=== PATIENT | male | born 1970 | race Caucasian/White ===

== ENCOUNTER 2020-01-08 11:00 | Emergency (ER) | payer SELFPAY ==
[2020-01-08] MEDS ORDERED: ASPIRIN 325 MG TAB PO ONE (11:43)
--- NOTE | 2020-01-08 12:15 | XRay Report ---
CHEST 2 VIEWS INDICATION / CLINICAL INFORMATION: CP. COMPARISON: None available. FINDINGS: SUPPORT DEVICES: None. HEART / MEDIASTINUM: No significant abnormality. LUNGS / PLEURA: No significant pulmonary or pleural abnormality. No pneumothorax. ADDITIONAL FINDINGS: No significant additional findings. IMPRESSION: No acute cardiopulmonary abnormality. Signer Name: Bruno Cowan MD Signed: 01/08/2020 12:11 PM Workstation Name: [id number]
[2020-01-08 13:18] LABS: Albumin 4.5 g/dL (3.9-5); Calcium 9.5 mg/dL (8.4-10.2)
--- NOTE | 2020-01-08 13:24 | Emergency Department Report ---
ED General Adult HPI - General Chief complaint: Chest Pain Stated complaint: CP/PALPATATIONS Time Seen by Provider: 01/08/20 11:52 Source: patient Mode of arrival: Ambulatory Limitations: No Limitations - History of Present Illness Initial comments: Patient is a 49-year-old male who presents emergency room complaints of palpitations that began a couple weeks ago. He states that he intermittently feels left-sided chest pain which he describes as a mild pressure. He states that he feels like his heart is beating fast. He denies any radiation of the pain, nausea, vomiting, diarrhea, fever, leg swelling, shortness of breath. He denies any past medical history. He states he has an allergy to penicillin. He states he is a nondrinker, denies drug use, denies tobacco use, denies taking supplements. He states that he does drink sweet tea daily. He states that he does not drink water often. He denies any family cardiac history. - Related Data Allergies Allergy/AdvReac Type Severity Reaction Status Date / Time No Known Allergies Allergy Unverified 01/08/20 11:37 ED Review of Systems ROS: Stated complaint: CP/PALPATATIONS Other details as noted in HPI Comment: All other systems reviewed and negative ED Past Medical Hx - Past Medical History Previous Medical History?: No - Surgical History Past Surgical History?: Yes Additional Surgical History: TONSILLECTOMY - Social History Smoking Status: Never Smoker Substance Use Type: None ED Physical Exam - General Limitations: No Limitations General appearance: alert, in no apparent distress - Head Head exam: Present: atraumatic, normocephalic - Eye Eye exam: Present: normal appearance - ENT ENT exam: Present: mucous membranes moist - Respiratory Respiratory exam: Present: normal lung sounds bilaterally. Absent: respiratory distress, wheezes, rales, rhonchi, stridor, chest wall tenderness, accessory muscle use, decreased breath sounds, prolonged expiratory - Cardiovascular Cardiovascular Exam: Present: regular rate, normal rhythm, normal heart sounds. Absent: systolic murmur, diastolic murmur, rubs, gallop - Extremities Exam Extremities exam: Absent: pedal edema - Neurological Exam Neurological exam: Present: alert, oriented X3 - Psychiatric Psychiatric exam: Present: normal affect, normal mood - Skin Skin exam: Present: warm, dry, intact ED Course Vital Signs 09/06/20 09/06/20 11:31 14:27 Temperature 97.8 F Pulse Rate 80 78 Respiratory 18 16 Rate Blood Pressure 163/97 Blood Pressure 156/91 [Left] O2 Sat by Pulse 97 98 Oximetry ED Medical Decision Making - Lab Data Result diagrams: 01/08/20 12:17 01/08/20 12:22 Lab Results 01/08/20 01/08/20 01/08/20 Range/Units 12:17 12:22 12:22 WBC 6.7 (4.5-11.0) K/mm3 RBC 5.45 H (3.65-5.03) M/mm3 Hgb 16.3 H (11.8-15.2) gm/dl Hct 49.0 H (35.5-45.6) % MCV 90 (84-94) fl MCH 30 (28-32) pg MCHC 33 (32-34) % RDW 13.6 (13.2-15.2) % Plt Count 166 (140-440) K/mm3 Lymph % (Auto) 33.2 (13.4-35.0) % Bremer % (Auto) 6.9 (0.0-7.3) % Eos % (Auto) 1.0 (0.0-4.3) % Baso % (Auto) 0.8 (0.0-1.8) % Lymph # 2.2 (1.2-5.4) K/mm3 Bremer # 0.5 (0.0-0.8) K/mm3 Eos # 0.1 (0.0-0.4) K/mm3 Baso # 0.1 (0.0-0.1) K/mm3 Seg Neutrophils % 58.1 (40.0-70.0) % Seg Neutrophils # 3.9 (1.8-7.7) K/mm3 Sodium 141 (137-145) mmol/L Potassium 4.5 (3.6-5.0) mmol/L Chloride 102.5 (98-107) mmol/L Carbon Dioxide 26 (22-30) mmol/L Anion Gap 17 mmol/L BUN 12 (9-20) mg/dL Creatinine 1.3 (0.8-1.3) mg/dL Estimated GFR 59 ml/min BUN/Creatinine Ratio 9 % Glucose 98 (75-100) mg/dL Calcium 9.5 (8.4-10.2) mg/dL Magnesium 2.10 (1.7-2.3) mg/dL Total Bilirubin 0.40 (0.1-1.2) mg/dL AST 19 (5-40) units/L ALT 18 (7-56) units/L Alkaline Phosphatase 66 (35-129) units/L Total Creatine Kinase 225 H (55-170) units/L Troponin T < 0.010 (0.00-0.029) ng/mL Total Protein 8.1 (6.3-8.2) g/dL Albumin 4.5 (3.9-5) g/dL Albumin/Globulin Ratio 1.3 % TSH (0.270-4.200) mlU/mL 01/08/20 01/08/20 Range/Units 12:22 14:47 WBC (4.5-11.0) K/mm3 RBC (3.65-5.03) M/mm3 Hgb (11.8-15.2) gm/dl Hct (35.5-45.6) % MCV (84-94) fl MCH (28-32) pg MCHC (32-34) % RDW (13.2-15.2) % Plt Count (140-440) K/mm3 Lymph % (Auto) (13.4-35.0) % Bremer % (Auto) (0.0-7.3) % Eos % (Auto) (0.0-4.3) % Baso % (Auto) (0.0-1.8) % Lymph # (1.2-5.4) K/mm3 Bremer # (0.0-0.8) K/mm3 Eos # (0.0-0.4) K/mm3 Baso # (0.0-0.1) K/mm3 Seg Neutrophils % (40.0-70.0) % Seg Neutrophils # (1.8-7.7) K/mm3 Sodium (137-145) mmol/L Potassium (3.6-5.0) mmol/L Chloride (98-107) mmol/L Carbon Dioxide (22-30) mmol/L Anion Gap mmol/L BUN (9-20) mg/dL Creatinine (0.8-1.3) mg/dL Estimated GFR ml/min BUN/Creatinine Ratio % Glucose (75-100) mg/dL Calcium (8.4-10.2) mg/dL Magnesium (1.7-2.3) mg/dL Total Bilirubin (0.1-1.2) mg/dL AST (5-40) units/L ALT (7-56) units/L Alkaline Phosphatase (35-129) units/L Total Creatine Kinase (55-170) units/L Troponin T < 0.010 (0.00-0.029) ng/mL Total Protein (6.3-8.2) g/dL Albumin (3.9-5) g/dL Albumin/Globulin Ratio % TSH 0.949 (0.270-4.200) mlU/mL - EKG Data EKG shows normal: sinus rhythm, axis, intervals, QRS complexes, ST-T waves Rate: normal - EKG Data 01/08/20 15:34 bifid p Waves no STEMI - Radiology Data Radiology results: report reviewed, image reviewed CHEST 2 VIEWS INDICATION / CLINICAL INFORMATION: CP. COMPARISON: None available. FINDINGS: SUPPORT DEVICES: None. HEART / MEDIASTINUM: No significant abnormality. LUNGS / PLEURA: No significant pulmonary or pleural abnormality. No pn eumothorax. ADDITIONAL FINDINGS: No significant additional findings. IMPRESSION: No acute cardiopulmonary abnormality. Signer Name: Hayden Cowan MD Signed: 01/08/2020 12:11 PM Workstation Name: [id number] Transcribed By: SS Dictated By: HAYDEN COWAN Electronically Authenticated By: HAYDEN CWOAN Signed Date/Time: 01/08/20 1211 DD/ 1210 TD/TT: - Medical Decision Making Patient is a 49-year-old male who presents emergency room complaints of palpitations that began a couple weeks ago. He states that he intermittently feels left-sided chest pain which he describes as a mild pressure. He states that he feels like his heart is beating fast. He denies any radiation of the pain, nausea, vomiting, diarrhea, fever, leg swelling, shortness of breath. He denies any past medical history. He states he has an allergy to penicillin. He states he is a nondrinker, denies drug use, denies tobacco use, denies taking supplements. He states that he does drink sweet tea daily. He states that he does not drink water often. He denies any family cardiac history. Vitals with slightly elevated blood pressure, improved slightly on repeat but still has mild elevation in blood pressure, otherwise vitals are normal. EKG is within normal limits. Chest x-ray with no acute process. Labs are normal. Troponin is negative x2. Patient is PERC criteria negative for PE. Heart score is 1, VIKY score 0, low risk for cardiac event. advised pt please follow-up with a primary care doctor regarding the elevation in your blood pressure during today's visit. Please keep a blood pressure log and take your blood pressure 3 times a day and take this to the primary care physician. Eat a low-sodium (low salt) diet. Increase your water intake. Incorporate 30 to 60 minutes of daily exercise. Please follow-up with a reimbursement analyst regarding your palpitations and chest pressure. Please avoid caffeine use which includes sodas, energy drinks, tea, coffee. Return to emergency room for any new or worsening symptoms. - Differential Diagnosis ACS, thyroid, anemia, PTX, PNA, pericarditis, PE, anxiety, GERD, electrolyt Critical care attestation.: If time is entered above; I have spent that time in minutes in the direct care of this critically ill patient, excluding procedure time. ED Disposition Clinical Impression: Palpitations, Chest pressure, Elevated blood pressure reading Disposition: DC-01 TO HOME OR SELFCARE Is pt being admited?: No Does the pt Need Aspirin: Yes Condition: Stable Instructions: Chest Pain (ED), Palpitations (ED), Low Sodium Diet (ED), Hypertension (ED) Additional Instructions: Please follow-up with a primary care doctor regarding the elevation in your blood pressure during today's visit. Please keep a blood pressure log and take your blood pressure 3 times a day and take this to the primary care physician. Eat a low-sodium (low salt) diet. Increase your water intake. Incorporate 30 to 60 minutes of daily exercise. Please follow-up with a reimbursement analyst regarding your palpitations and chest pressure. Please avoid caffeine use which includes sodas, energy drinks, tea, coffee. Return to emergency room for any new or worsening symptoms. Referrals: AMANDA DUFFY [Primary Care Provider] - 2-3 Days CLAY FAJARDO MD [Staff Physician] - 2-[address] [facility] [Provider Group] - 2-3 Days [facility] [Outside] - 2-3 Days LAURA KILGORE MD [Staff Physician] - 2-3 Days Time of Disposition: 15:31 Print Language: [id number]
[2020-01-08 13:29] LABS: Basophils # (Auto) 0.1 K/mm3 (0.0-0.1); Basophils % (Auto) 0.8 % (0.0-1.8); Eosinophils # (Auto) 0.1 K/mm3 (0.0-0.4); Hemoglobin 16.3 gm/dl (11.8-15.2); Lymphocytes # (Auto) 2.2 K/mm3 (1.2-5.4); Lymphocytes % (Auto) 33.2 % (13.4-35.0); Mean Corpuscular HGB Conc 33 % (32-34); Mean Corpuscular Volume 90 fl (84-94); Monocytes # (Auto) 0.5 K/mm3 (0.0-0.8); Monocytes % (Auto) 6.9 % (0.0-7.3); Red Blood Count 5.45 M/mm3 (3.65-5.03); Red Cell Distribution Width 13.6 % (13.2-15.2)
[2020-01-08 14:28] VITALS: BP 156/91
[2020-01-08 14:52] LABS: Platelet Count 166 K/mm3 (140-440)
== END 2020-01-08 15:57 | disposition home or self-care (01) ==
LOC: ED 11:00
DX: R07.89 Other chest pain (principal); R00.2 Palpitations; R03.0 Elevated blood-pressure reading, without diagnosis of hypertension; Z90.89 Acquired absence of other organs
CPT/HCPCS: 36415; 71046; 80053; 82550; 83735; 84443; 84484; 85025